=== PATIENT | female | born 1985 ===

== ENCOUNTER 2018-05-26 19:40 | Emergency (ER) | payer OTHER ==
[2018-05-26 20:08] VITALS: BP 117/73
--- NOTE | 2018-05-26 20:40 | UC ---
Knee Pain HPI - HPI Summary HPI Summary: 32-year-old woman comes clinic with a chief complaint of right knee pain. Pain is primarily around the kneecap. Patient appears Klix and occasionally feels like it wants to give out. No known trauma. Increase activity makes the pain worse resting it decreases the pain. Patient reports about 6 years ago she had similar problems and had physical therapy and it improved. - History of Current Complaint Chief Complaint: UCLowerExtremity Stated Complaint: RIGHT KNEE PAIN Time Seen by Provider: 05/26/18 20:24 Hx Last Menstrual Period: 05/20/18 Pain Intensity: 4 - Allergies/Home Medications Allergies/Adverse Reactions: Allergies Allergy/AdvReac Type Severity Reaction Status Date / Time No Known Allergies Allergy Verified 05/26/18 20:02 PMH/Surg Hx/FS Hx/Imm Hx Previously Healthy: Yes - Surgical History Surgical History: None - Family History Known Family History: Positive: Non-Contributory - Social History Alcohol Use: Rare Substance Use Type: None Smoking Status (MU): Never Smoked Tobacco Review of Systems All Other Systems Reviewed And Are Negative: Yes Constitutional: Positive: Negative Skin: Positive: Negative Eyes: Positive: Negative ENT: Positive: Negative Respiratory: Positive: Negative Cardiovascular: Positive: Negative Gastrointestinal: Positive: Negative Motor: Positive: Negative Neurovascular: Positive: Negative Musculoskeletal: Positive: Other: - SEE HPI Neurological: Positive: Negative Psychological: Positive: Negative Is Patient Immunocompromised?: No Physical Exam Triage Information Reviewed: Yes Appearance: Well-Appearing, No Pain Distress, Well-Nourished Vital Signs: Initial Vital Signs Temp 98.4 F 05/26/18 20:02 Pulse 70 05/26/18 20:02 Resp 16 05/26/18 20:02 BP 117/73 05/26/18 20:02 Pulse Ox 100 05/26/18 20:02 Vital Signs Reviewed: Yes Eye Exam: Normal Eyes: Positive: Conjunctiva Clear Neck: Positive: Supple Respiratory: Positive: No respiratory distress Musculoskeletal: Positive: Other: - Right knee is tender to palpation with movement of the patella and also in the popliteal region. Negative Bakari's. It feels stable to my exam however the patient states it feels loose with anterior posterior draw. Nontender on the collateral ligaments. No sensation deficit. Knee has full range of motion. Neurological Exam: Normal Neurological: Positive: Alert, Muscle Tone Normal Psychological Exam: Normal Psychological: Positive: Age Appropriate Behavior Skin Exam: Normal Knee Pain Course/Dx - Course Course Of Treatment: I discussed the x-rays with the patient. I do not see any fracture or abnormality. Radiologist reading is pending. Patient was placed and a knee immobilizer due to her stating that she feels like the knee is giving out by nursing and patient is neurovascularly intact after placement of the knee immobilizer. Given the location of the pain patellofemoral syndrome is a possibility. Plan is to have the patient follow-up sports medicine or orthopedics. - Differential Dx/Diagnosis Provider Diagnosis: Right knee sprain Discharge - Sign-Out/Discharge Documenting (check all that apply): Patient Departure All imaging exams completed and their final reports reviewed: No - Discharge Plan Condition: Stable Disposition: HOME Patient Education Materials: Knee Sprain (ED) Forms: *Work Release Referrals: [facility] [Provider Group] Sweta Carballo NP [Primary Care Provider] - Dex Jerome MD [Medical Doctor] - Additional Instructions: FOLLOW UP WITH SPORTS MEDICINE. GET REEVALUATED SOONER IF YOUR CONDITION WORSENS OR ANY QUESTIONS OR CONCERNS. - Billing Disposition and Condition Condition: STABLE Disposition: Home
== END 2018-05-26 21:23 | disposition home or self-care (01) ==
LOC: UCCORT 19:40
DX: S83.91XA Sprain of unspecified site of right knee, initial encounter (principal); X58.XXXA Exposure to other specified factors, initial encounter; Y92.9 Unspecified place or not applicable
CPT/HCPCS: 99202; G0463